=== PATIENT | male | born 1995 | race Caucasian/White ===

== ENCOUNTER 2018-08-03 10:54 | Observation (INO) | payer OTHER ==
[2018-08-03 11:46] LABS: ABS Lymphocytes 1.4 10^3/ul (1.0-4.8); ABS Monocytes 0.6 10^3/ul (0-0.8); ABS Neutrophils 9.6 10^3/ul (1.5-7.7); Eosinophil % 0.2 %; Hematocrit 39 % (42-52); Hemoglobin 13.1 g/dL (14.0-18.0); Lymphocyte % 12.1 %; Mean Corpuscular HGB Conc 34 g/dL (31-36); Mean Corpuscular Hemoglobin 30 pg (27-31); Mean Corpuscular Volume 89 fL (80-94); Mean Platelet Volume 8.6 fL (7.4-10.4); Platelet Count 204 10^3/uL (150-450); Red Blood Count 4.41 10^6 /uL (4.18-5.48); Red Cell Distribution Width 13 % (10.5-15); White Blood Count 11.6 10^3/uL (3.5-10.8)
[2018-08-03 12:07] LABS: ALT 19 U/L (7-52); AST 35 U/L (13-39); Albumin 4.1 g/dL (3.2-5.2); Albumin/Globulin Ratio 1.4 (1-3); Alkaline Phosphatase 71 U/L (34-104); Anion Gap 6 mmol/L (2-11); BUN/Creatinine Ratio 10.3 (8-20); Blood Urea Nitrogen 9 mg/dL (6-24); CO2 Carbon Dioxide 27 mmol/L (22-32); Calcium 9.2 mg/dL (8.6-10.3); Chloride 105 mmol/L (101-111); EGFR African American 131.6 (>60); EGFR Non-African American 108.7 (>60); Globulin 2.9 g/dL (2-4); Glucose 100 mg/dL (70-100); Potassium 3.6 mmol/L (3.5-5.0); Sodium 138 mmol/L (135-145)
--- NOTE | 2018-08-03 12:08 | ED ---
Abdominal Pain/Male - HPI Summary HPI Summary: The patient is a 43 year old M presenting to [facility] with a chief complaint of upper abdominal pain since this morning after waking up. The pt states that the pain was so intense he was unable to stand up straight this morning and had to recover on the toilet before standing back up. The pain finally decreased when he arrived to the hospital. The pt reports taking [id number] mg of Tylenol for pain in his mouth for the past few years every 6-8 hours twice a day. This episode occurred after the patient took his night time dosage of Tylenol last night and then when his pain was still present he took another 2 tabs of Burton before bed. The pt reports no other symptoms other than the abdominal pain but did admit to attempting to throw up this morning without effect. The pt reported movement aggravated the symptoms of pain and rest alleviated the symptoms. The pt also reported eating only mac n cheese yesterday after a dentist appointment. - History of Current Complaint Chief Complaint: EDOverdose Stated Complaint: TYLENOL OD PER PT Time Seen by Provider: 08/03/18 11:11 Hx Obtained From: Patient Onset/Duration: Sudden Onset, Lasting Hours - this morning, Resolved - pain was resolved upon visit to the ED Timing: Constant Severity Initially: Severe Severity Currently: None Pain Intensity: 0 Pain Scale Used: 0-10 Numeric Location: Diffuse Aggravating Factor(s): Movement Alleviating Factor(s): Other: - rest Associated Signs And Symptoms: Positive: Other - abdominal pain - Allergies/Home Medications Allergies/Adverse Reactions: Allergies Allergy/AdvReac Type Severity Reaction Status Date / Time No Known Allergies Allergy Verified 08/03/18 11:06 Home Medications: Home Medications Acetaminophen [Tylenol Extra Strength] 3,000 - 4,000 mg PO DAILY PRN 08/03/18 [ History Confirmed 08/03/18] Cephalexin CAP* [Keflex 500 CAP*] 500 mg PO TID 08/03/18 [History Confirmed ] HYDROcodone/ACETAMIN 5-325 MG* [Burton 5-325 TAB*] 1 tab PO Q6H PRN 08/03/18 [ History Confirmed 08/03/18] PMH/Surg Hx/FS Hx/Imm Hx Previously Healthy: No Respiratory History: Reports: Hx Asthma Psychiatric History: Denies: Hx Eating Disorder, Hx of Violent Episodes Against Others Infectious Disease History: No Infectious Disease History: Denies: History Other Infectious Disease, Traveled Outside the [place] in Last 30 Days - Family History Known Family History: Positive: Hypertension Negative: Diabetes - Social History Alcohol Use: None Hx Substance Use: No Substance Use Type: Reports: None Hx Tobacco Use: Yes Smoking Status (MU): Former Smoker Type: Cigarettes Amount Used/How Often: 1-2 cigs day Review of Systems Negative: Fever Positive: Abdominal Pain. Negative: Vomiting All Other Systems Reviewed And Are Negative: Yes Physical Exam - Summary Physical Exam Summary: Constitutional: Well-developed, Well-nourished, Alert. (-) Distressed Skin: Warm, Dry HENT: Normocephalic; Atraumatic Eyes: Conjunctiva normal Neck: Musculoskeletal ROM normal neck. (-) JVD, (-) Stridor, (-) Tracheal deviation Cardio: Rhythm regular, rate normal, Heart sounds normal; Intact distal pulses; The pedal pulses are 2+ and symmetric. Radial pulses are 2+ and symmetric. (-) Murmur Pulmonary/Chest wall: Effort normal. (-) Respiratory distress, (-) Wheezes, (-) Rales Abd: Soft, (-) tenderness, (-) Distension, (-) Guarding, (-) Rebound Musculoskeletal: (-) Edema Lymph: (-) Cervical adenopathy Neuro: Alert, Oriented x3 Psych: Mood and affect Normal Triage Information Reviewed: Yes Vital Signs On Initial Exam: Initial Vitals Temp Pulse Resp BP Pulse Ox 98.9 F 61 16 147/90 99 08/03/18 10:59 08/03/18 10:59 08/03/18 10:59 08/03/18 10:59 08/03/18 10:59 Vital Signs Reviewed: Yes Diagnostics - Vital Signs Vital Signs Temp Pulse Resp BP Pulse Ox 08/03/18 10:59 98.9 F 61 16 147/90 99 - Laboratory Lab Results: Lab Results 08/03/18 Range/Units 11:38 WBC 11.6 H (3.5-10.8) 10^3/uL RBC 4.41 (4.18-5.48) 10^6 /uL Hgb 13.1 L (14.0-18.0) g/dL Hct 39 L (42-52) % MCV 89 (80-94) fL MCH 30 (27-31) pg MCHC 34 (31-36) g/dL RDW 13 (10.5-15) % Plt Count 204 (150-450) 10^3/uL MPV 8.6 (7.4-10.4) fL Neut % (Auto) 82.6 % Lymph % (Auto) 12.1 % [place] % (Auto) 4.9 % Eos % (Auto) 0.2 % Baso % (Auto) 0.2 % Absolute Neuts (auto) 9.6 H (1.5-7.7) 10^3/ul Absolute Lymphs (auto) 1.4 (1.0-4.8) 10^3/ul Absolute Monos (auto) 0.6 (0-0.8) 10^3/ul Absolute Eos (auto) 0.0 (0-0.6) 10^3/ul Absolute Basos (auto) 0.0 (0-0.2) 10^3/ul Absolute Nucleated RBC 0.0 10^3/ul Nucleated RBC % 0.0 Result Diagrams: 08/03/18 11:38 08/03/18 11:38 Lab Statement: Any lab studies that have been ordered have been reviewed, and results considered in the medical decision making process. - EKG 1214 Cardiac Rate: Bradycardia - 46 BPM EKG Rhythm: Sinus Bradycardia Summary of EKG Findings: sinus bradycardia rhythm at 46 bpm, normal TN, normal QRS, normal QTc, normal axis, normal ST, normal T-waves. Re-Evaluation - Re-Evaluation First Eval Re-Evaluation Time: 14:07 Change: Improved Comment: Pt was informed on ED course and is agreeable Abdominal Pain Male Course/Dx - Course Course Of Treatment: The patient is a 43 year old M presenting to [facility] with a chief complaint of upper abdominal pain since this morning after waking up. The pt has abnormalities in WBC 11.6 H, Hgb 13.1 L, Hct 39 L, absolute neuts 9.6 H, INR 1.14 H, Lipase <10 L, Urine opiates screen: presumptive positive A, Urine cannabinoids screen presumptive positive A, AST of 51 H The pt also received an EKG that shows sinus bradycardia rhythm at 46 bpm, normal TN, normal QRS, normal QTc, normal axis, normal ST, normal T-waves. The pt recieved the following medications: Zofran 4 mg IV and Sodium chloride 0.9% 1000 mls IV. The patient developed nausea and vomiting in the ED and was treated. He was re- evaluated multiple times during his stay to assure that his symptoms had improved and discuss the plan. Poison control was contacted regarding this patient and the restaurant managing partner was consulted. He recommended repeating LFT's between 4 and 5 hours from the first. If LFT's are elevated, then they recommend starting n-acetylcysteine. Repeat LFT's were slightly elevated. Poison control was contacted again and they recommended admission for NAC. The pt will be admitted to the ICU with a Dx of Tylenol overdose. The patient's care was discussed with the hospitalist and the ICU attending. - Diagnoses Provider Diagnoses: Tylenol overdose - Critical Care Time Critical Care Time: 30-74 min Discharge - Sign-Out/Discharge Documenting (check all that apply): Patient Departure - admitted to ICU - Discharge Plan Condition: Improved Disposition: ADMITTED TO [facility] - Billing Disposition and Condition Condition: IMPROVED Disposition: Admitted to [facility] - Attestation Statements Document Initiated by Sulema: Yes Documenting Scribe: Alexey Javier Provider For Whom Sulema is Documenting (Include Credential): Denise Rasmussen MD Scribe Attestation: Alexey Floyd, adrianed for Denise Wells MD on 08/03/18 at 1807. Scribe Documentation Reviewed: Yes Provider Attestation: The documentation as recorded by the Alexey wallace accurately reflects the service I personally performed and the decisions made by oh, Denise Wells MD Status of Scribe Document: Viewed
[2018-08-03 12:10] LABS: Acetaminophen 25 mcg/mL; Alcohol < 10 mg/dL (<10); Salicylate < 2.50 mg/dL (<30)
[2018-08-03] MEDS ORDERED: NS 0.9% 1000 ML** 1,000 ML IV ONE (12:12)
[2018-08-03] MEDS ORDERED: Ondansetron INJ* 2 MG/ML VIAL IV ONE (12:12)
[2018-08-03 12:30] LABS: INR 1.14 (0.82-1.09)
[2018-08-03 12:36] LABS: Urine Benzodiazepine Screen None Detected (None Detect); Urine Opiates Screen Presumptive Positive (None Detect)
[2018-08-03] MEDS ORDERED: D5W IVPB ONE ×4 (13:26→19:00)
[2018-08-03] MEDS ORDERED: ACETYLCYSTEINE IVPB ONE ×4 (13:26→19:00)
[2018-08-03 16:27] LABS: Albumin/Globulin Ratio 1.4 (1-3); Globulin 2.8 g/dL (2-4); Indirect Bilirubin 0.3 mg/dL (0.3-1.0); Total Bilirubin 0.4 mg/dL (0.2-1.0); Total Protein 6.8 g/dL (6.4-8.9)
[2018-08-03] MEDS ORDERED: Al Hydrox/Mg Hydrox/Simet LIQ* 30 ML UDC PO PRN (17:09)
[2018-08-03] MEDS ORDERED: oxyCODONE TAB* 5 MG TAB PO PRN (17:54)
[2018-08-03] MEDS ORDERED: LORazepam TAB(*) 0.5 MG PO PRN (18:02)
--- NOTE | 2018-08-03 19:51 | HP ---
HISTORY AND PHYSICAL: DATE OF ADMISSION: 08/03/18 TIME OF ADMISSION: 6 p.m. PRIMARY CARE PHYSICIAN: Dr. Asher at [place]. CHIEF COMPLAINT: Abdominal pain. HISTORY OF PRESENT ILLNESS: This is a 22-year-old man with history of depression, who presents to the emergency department with abdominal pain that started this morning. He has been taking Tylenol for several months and explains that he usually takes 3000 to 4000 mg twice a day and has been doing so for a few months. Then, he had some dental work done on Wednesday and got a dry socket from wisdom teeth removal and was prescribed Vicodin yesterday. Last night, he took his usual 4000 mg of Tylenol plus 2 Vicodin and this morning he woke up with abdominal pain that was described as a tightness in his epigastric area. It has persisted after he moved his bowels and felt like a pulling sensation until I came to the emergency department. The pain resolved on its own and he now feels well. He was monitored today and his initial LFTs were normal and Poison Control was contacted and they recommended repeating his LFTs this afternoon. His AST was mildly elevated and poison control recommended admission for N-acetylcysteine. Currently, Fernando has no abdominal pain, nausea , vomiting, diarrhea, fevers. He does complain of some dental pain and anxiety , but he has no other complaints. PAST MEDICAL HISTORY: Depression. PAST SURGICAL HISTORY: None. MEDICATIONS: He takes sertraline 50 mg daily. ALLERGIES: None. FAMILY HISTORY: Hypertension. 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 He smokes 1 to 2 cigarettes per day. He rare drinks alcohol and has had none in the past week. Emergency contact/healthcare proxy is his Ira de los santos. REVIEW OF SYSTEMS: As per the HPI. Remainder of the 14-point review of systems is negative. PHYSICAL EXAMINATION GENERAL: Thin, alert, well-appearing white man, in no distress. However, he does become tearful when we discuss admission. VITAL SIGNS: Temperature 98.4, heart rate 46, respiratory rate 15, pulse ox 100 % on room air, blood pressure 137/90. HEENT: Pupils are equal, round, and reactive to light. No scleral icterus. Oral mucosa is moist. He has pronounced enlarged tonsils with no exudates or erythema. No erythema, drainage, or abscess in his dentition. NECK: No adenopathy. CHEST: He is bradycardic with no murmurs. LUNGS: Clear bilaterally. ABDOMEN: Scaphoid, soft, nontender, nondistended with no guarding or rebound. He has a negative Barrera's sign. His liver is palpable at the costal margin. He has no CVA tenderness. EXTREMITIES: No edema, rashes, or ulcers. No asterixis. NEURO: He is oriented, alert and appropriate. DIAGNOSTIC STUDIES/LAB DATA: White blood cells 11.6, hemoglobin 13.1, platelets 204, 82.6% neutrophils. INR 1.14. Sodium 138, potassium 3.6, chloride 105, bicarb 27, BUN 9, creatinine 0.87, glucose 100. Total bilirubin 0.4, direct bilirubin 0.1, AST 51, ALT 36, lipase less than 10. Salicylates are less than 2.5. Opiates are positive. Acetaminophen level is 25. Urine cannabinoids are positive. Serum alcohol is less than 10. EKG, sinus bradycardia with a normal axis, normal intervals, and no ST or T- wave changes. ASSESSMENT AND PLAN: This is a 22-year-old man with history of depression and recent dental pain, who presents to the emergency department with an unintentional Tylenol overdose. 1. Unintentional Tylenol overdose. His AST is mildly elevated and poison control recommends acetylcysteine for this. I am admitting him to the ICU for second and third doses of acetylcysteine. He has some other evidence of liver dysfunction and elevated INR. I will recheck his LFTs and INR in the morning. He has no evidence of bleeding or neurologic impairment. This is a subacute and long-term exposure overdose to Tylenol. 2. Tooth pain related to recent instrumentation and wisdom tooth removal. I will place him on oxycodone. 3. Depression. I am continuing his sertraline; however, it should be noted that if his LFTs continued to rise, sertraline is hepatically metabolized and may need to be discontinued. 4. DVT prophylaxis. Contraindicated in the setting of coagulopathy. [id number]/[facility] #: [id number] MTDD
[2018-08-03] MEDS: Cephalexin CAP* 500 MG PO SCH (20:06)
[2018-08-03] MEDS: Ketorolac INJ* 30 MG/ML 1 ML VIAL IV PUSH PRN (20:06)
[2018-08-03 20:21] LABS: INR 1.18 (0.82-1.09)
[2018-08-03 20:28] LABS: Albumin 4.1 g/dL (3.2-5.2); Albumin/Globulin Ratio 1.4 (1-3); Globulin 2.9 g/dL (2-4); Indirect Bilirubin 0.3 mg/dL (0.3-1.0); Total Bilirubin 0.4 mg/dL (0.2-1.0)
[2018-08-04] MEDS ORDERED: ACETYLCYSTEINE IVPB ONE ×2
[2018-08-04] MEDS ORDERED: D5W IVPB ONE ×2
[2018-08-04 06:20] LABS: INR 1.22 (0.82-1.09)
[2018-08-04 06:24] LABS: ALT 24 U/L (7-52); AST 19 U/L (13-39); Albumin/Globulin Ratio 1.5 (1-3); Alkaline Phosphatase 69 U/L (34-104); Anion Gap 7 mmol/L (2-11); BUN/Creatinine Ratio 10.4 (8-20); Blood Urea Nitrogen 8 mg/dL (6-24); CO2 Carbon Dioxide 27 mmol/L (22-32); Calcium 9.4 mg/dL (8.6-10.3); Chloride 105 mmol/L (101-111); EGFR African American 151.5 (>60); EGFR Non-African American 125.2 (>60); Globulin 2.6 g/dL (2-4); Glucose 101 mg/dL (70-100); Potassium 3.4 mmol/L (3.5-5.0); Sodium 139 mmol/L (135-145); Total Protein 6.6 g/dL (6.4-8.9)
[2018-08-04 06:43] LABS: Acetaminophen < 15 mcg/mL
[2018-08-04] MEDS: Cephalexin CAP* 500 MG PO SCH ×2 (08:49→13:21)
[2018-08-04] MEDS ORDERED: Sertraline* 100 MG TAB PO SCH (09:00)
[2018-08-04] MEDS: Ketorolac INJ* 30 MG/ML 1 ML VIAL IV PUSH PRN (13:21)
[2018-08-04 15:21] VITALS: BP 131/75
== END 2018-08-04 15:25 | disposition home or self-care (01) ==
LOC: ED 10:54 → ICU 17:09 → INTOOBSV 17:09 → UNDOADMIN 17:09
PROVIDERS: ADMIT Internal Medicine; ATTEND Internal Medicine
DX: T39.1X1A Poisoning by 4-Aminophenol derivatives, accidental (unintentional), initial encounter (principal); R10.10 Upper abdominal pain, unspecified; Y92.9 Unspecified place or not applicable; Z87.891 Personal history of nicotine dependence; F32.9 Major depressive disorder, single episode, unspecified; K08.9 Disorder of teeth and supporting structures, unspecified
CPT/HCPCS: 36415; 80053; 80076; 80307; 80320; 80329; 83690; 85025; 85610; 85730; 87641; 93005; 96374; 96375; 99285; A9270-GY; G0378; G0480; J0132; J1885; J2405; J7060

== ENCOUNTER 2018-10-22 12:37 | Emergency (ER) | payer OTHER ==
[2018-10-22 12:47] VITALS: BP 101/66
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
== END 2018-10-22 13:55 | disposition home or self-care (01) ==
LOC: UCEAST 12:37
DX: S62.232A Other displaced fracture of base of first metacarpal bone, left hand, initial encounter for closed fracture (principal); S63.501A Unspecified sprain of right wrist, initial encounter; V18.0XXA Pedal cycle driver injured in noncollision transport accident in nontraffic accident, initial encounter; Y93.55 Activity, bike riding; Y92.410 Unspecified street and highway as the place of occurrence of the external cause; Y99.8 Other external cause status; F32.9 Major depressive disorder, single episode, unspecified; F17.210 Nicotine dependence, cigarettes, uncomplicated
CPT/HCPCS: 99212; G0463